=== PATIENT | male | born 1990 | race Hispanic/Latino ===

== ENCOUNTER 2022-06-09 | Emergency (ER) | payer OTHER ==
[~2022-06-09] VITALS: Ht 177.8 cm; Wt 103.4 kg
[2022-06-09] MEDS ORDERED: PROCHLORPERAZINE 10MG/2ML INJ ONE (01:58)
[2022-06-09] MEDS ORDERED: DiphenhydrAMINE HCL 50 MG/ML VIAL IV ONE (02:00)
[2022-06-09] MEDS ORDERED: PROCHLORPERAZINE EDISYLATE 5 MG/ML 2 ML VIAL IVP ONE (02:00)
[2022-06-09] MEDS ORDERED: 0.9%NACL 1000ML 1,000 ML IV SCH (02:00)
[2022-06-09] MEDS ORDERED: KETOROLAC 30MG VIAL (30MG/ML) IVP ONE (02:00)
[2022-06-09 04:05] VITALS: BP 148/82
== END 2022-06-09 04:07 | disposition home or self-care (01) ==
LOC: EDH
DX: G43.109 Migraine with aura, not intractable, without status migrainosus (principal); Z79.1 Long term (current) use of non-steroidal anti-inflammatories (NSAID)
CPT/HCPCS: 99284; 96374; 96375; 96361; J1200; J7030; J0780; J1885